=== PATIENT | female | born 1990 | race Caucasian/White ===

== ENCOUNTER 2022-07-04 04:40 | Inpatient (IN) | payer OTHER, SELFPAY ==
[2022-07-04] VITALS (65 sets, daily range): BP systolic 93–135; BP diastolic 47–93; PULSE 74–126; RESP 16–18; TEMP 36.6–37.2; O2SAT 92–100; BMI 27.5
--- NOTE | 2022-07-04 05:04 | LDADM ---
This patient, Mali Holland, was admitted to Labor/Delivery/Recovery 106 on 07/04/22 at 04:40. Plans for labor, pain management and were discussed with patient. Patient/family oriented to hospital policies and general routines including ID bracelet, bed and alarms, visiting hours, pain management, procedures, bathroom and other care routines, personal items, smoking policy, room service/diet and guest tray routines, security routines, and visiting hours. Patient/Family are encouraged to report perceived risks to care and to ask questions if they do not understand what they are told or what they should do. See OBIX for further documentation.
[2022-07-04 05:18] LABS: Basophils Percent Auto 0.3 % (0.2-1.2); Eosinophils Absolute Auto 0.1 K/mm3 (0-0.3); Eosinophils Percent Auto 0.6 % (0-4.4); Hematocrit 32.5 % (37.0-47.0); Hemoglobin 10.1 g/dL (12.0-15.0); Immature Granulocyte Absolute 0.03 K/mm3 (0.00-0.031); Immature Granulocyte Percent A 0.3 % (0-0.5); Lymphocytes Absolute Auto 2.13 K/mm3 (0.9-3.2); Mean Corpuscular HGB Conc 31.1 g/dl (32-36); Mean Corpuscular Hemoglobin 25.6 pg (26-34); Mean Corpuscular Volume 82.3 fl (80-100); Mean Platelet Volume 9.7 fl (7.4-10.4); Monocytes Absolute Auto 0.8 K/mm3 (0.1-0.6); Monocytes Percent Auto 8.8 % (2.6-8.5); Neutrophils Absolute Auto 6.2 K/mm3 (1.3-6.7); Platelet Count Result 196 k/mm3 (150-375); Red Blood Count 3.95 M/mm3 (4.2-5.4); Red Cell Distribution Width 13.5 % (11.5-14.5); White Blood Count 9.3 K/mm3 (4.5-10.0)
[2022-07-04] MEDS: OXYTOCIN 30 UNITS/NS 500 ML 30 UNITS/500 ML BAG IV CONT (05:45)
[2022-07-04] MEDS: LACTATED RINGERS 1,000 ML 125 ML IV CONT ×2 (05:46→09:15)
--- NOTE | 2022-07-04 10:42 | WPDHPUPDATE1 ---
History and Physical Update Update Date/Time: 07/04/22 10:42 History and Physical has been reviewed, including an updated exam of the patient. There are NO changes in the patient's condition. Risks, benefits, and alternatives have been discussed and questions answered. Patient agrees to proceed with procedure.
--- NOTE | 2022-07-04 10:42 | WPDOBADMIT ---
Obstetrics - Admit Note Admission Note: record reviewed. No pertinent additions to the history and/or any subsequent changes in the physical findings that are not consistent with the expected course of the were found. Additions to the history and/or subsequent changes in the physical findings follow. None.
--- NOTE | 2022-07-04 12:38 | P.PCNOB_ITS ---
OB - Delivery Note Procedure Induction method: AROM and Per Pitocin Protocol Delivery monitor: External FHT and External Uterine Route of delivery: Episiotomy description: None Laceration Description: None Specimen: No Quantitative Blood Loss (ml): 350 Anesthesia type: Epidural Disposition: Floor Complications: None Narrative: patient prepped draped usual manner for this procedure. Maternal expulsive efforts readily delivered vertex rest baby was delivered without difficulty. Cord clamped and cut placenta delivered spontaneously. Cervix vagina vulva were inspected with no lacerations or tears. Immediate postoperative mother was excellent baby was having some difficulty with breathing and was sent to the nursery. [place] Baby Weeks of gestation at delivery: 39 gender: Male Weight (pounds): 8 Weight (ounces): 2 presentation: vertex Placenta delivery description: Spontaneous Cord Vessel Description: 3 Vessels score one minute: 8 score five minutes: 9 [facility] Delivery Billing Delivery Delivery: Delivery Charge
[2022-07-04] MEDS: OXYTOCIN 30 UNITS/NS 500 ML 30 UNITS/500 ML BAG 125 UNITS IV CONT (13:06)
[2022-07-04] MEDS: IBUPROFEN 600 MG TABLET PO (15:12)
[2022-07-04] MEDS: WITCH HAZEL 40 PADS 1 PAD TOPICAL (15:13)
[2022-07-04] MEDS: BENZOCAINE 20% AER SPR (*SP) 56 GM CAN 1 SPRAY TOPICAL (15:13)
--- NOTE | 2022-07-04 15:25 | OBPPTRN ---
Patient transferred to post room #282 via wheelchair. Support person present. Oriented to unit, room, information board, rooming in, admission packet and security measures. Patient verbalizes understanding.
--- NOTE | 2022-07-04 15:50 | PC.NURSE ---
Breast pump provided due to separation from infant. Instructions given on cleaning, care, usage, that there should be no pain, pumping schedule for milk production, collection, and storage of human milk. Patient was assessed for correct placement, flange size, to pump for comfort and nipple stretching/stimulation for adequate milk production every 3 hours (8 times in 24 hours) 1-2 times at night.
--- NOTE | 2022-07-04 16:25 | PC.NURSE ---
This patient went to [facility] to visit . IV Pitocin infusing, nursery nurse Lashay rojas.
--- NOTE | 2022-07-04 17:55 | PC.NURSE ---
Patient back to room from [facility].
[2022-07-04] MEDS: ACETAMINOPHEN 325 MG TABLET 650 MG PO (18:05)
[2022-07-05 05:42] LABS: Hematocrit 29.8 % (37.0-47.0); Hemoglobin 9.1 g/dL (12.0-15.0)
[2022-07-05] MEDS: IBUPROFEN 600 MG TABLET PO (05:43)
--- NOTE | 2022-07-05 07:31 | PM.OBDSVD ---
DS: Admitting Diagnosis Discharge Date 07/05/22 Admitting Diagnosis supervision of high risk intrauterine at term DS: Discharge Diagnosis Discharge Diagnosis (1) : Code(s): Z34.90 - Encounter for supervision of normal , unspecified, unspecified trimester Status: Acute OB - DS: Summary OB Procedures : None OB Procedures Intrapartum: Spontaneous Vag Delivery OB Procedures: : None Peripartum Data Delivery Method: Natural Vaginal Laceration Description: None complications: none Status at Discharge Functional status at discharge: independent ambulation Overall status at discharge: patient is back to baseline Time Spent with Patient Time attestation: Total time spent providing and/or coordinating discharge services: Time spent: Less than 30 minutes Exam Const: General: comfortable and no acute distress Resp: Effort & Inspection: normal respiratory effort Auscultation: clear to auscultation bilaterally Cardio: Rate: regular rate GI: GI Palp: Yes Soft to palpation Auscultation: normal bowel sounds Other: Fundus firm below umbilicus Psych: Appearance: grossly normal Mental Status: mental status grossly normal Affect: normal affect DS: Data Data Completed and Pending Labs on day of discharge: Labs from last 24 hours 07/05/22 05:33 Hgb 9.1 L Hct 29.8 L Discharge Plan Discharge Discharging Clinician: Lui Hart Patient Disposition: Home, Self-Care Activity: as tolerated and pelvic rest Diet: regular Patient Instructions: Antibiotic Form, Vaginal Delivery (DC) Stand Alone Forms: General Discharge Information Follow-up/Referrals: Mario Rodriguez MD [Physician] - Discharge Medications: New polysaccharide iron complex 150 mg iron Capsule 150 mg PO BIDWM Qty: 60 0RF acetaminophen [Mapap (acetaminophen)] 325 mg Tablet 650 mg PO Q6H PRN (Reason: Mild Pain (1-3) Or Headache) Qty: 30 0RF ibuprofen 600 mg Tablet 600 mg PO Q6H PRN (Reason: Cramping) Qty: 30 0RF Continued Multi-DHA(with vit K) 27 mg iron-800 mcg-260 mg capsule 1 cap PO DAILY Qty: 90 3RF sertraline [Zoloft] 50 mg tablet 50 mg PO DAILY Qty: 60 1RF Date of admission: 07/04/22 04:40 Primary Care Provider: UNKNOWN,DOCTOR Admitting Provider: Mario Rodriguez Attending physician on admission: Mario Rodriguez Condition: Stable
--- NOTE | 2022-07-05 07:44 | WPDANLDPN2 ---
Anes-Prog Note L&D Date/Time: 07/05/22 07:44 Comfortable throughout: labor and delivery Neuraxial method: epidural Epidural/Spinal procedure site: tender Neuro status: Neuro function grossly intact. Cardiovascular status: normal Respiratory status: normal Airway patency: baseline Mental status: baseline Post-Op hydration status: normal Vital Signs: Last Vital Signs Temp 36.8 C 07/04/22 23:23 Pulse 84 07/04/22 23:23 Resp 18 07/04/22 23:23 BP 98/52 L 07/04/22 23:23 Pulse Ox 98 07/04/22 23:23 O2 Del Method Room Air 07/04/22 15:25 Pain score (VAS): 310 I/O: Intake & Output 07/04/22 07/04/22 07/05/22 15:59 23:59 07:59 Intake Total 2000 1000 Output Total 87 Balance 1913 1000 Post-procedural complaints: none Patient feedback: Patient satisfied with anesthetic care.
[2022-07-05] MEDS: POLYSACCHARIDE IRON COMPLEX 150 MG CAPSULE PO (08:24)
[2022-07-05] MEDS: MULTIVIT/MIN/PREN/FOL AC/IRON TABLET 1 TAB PO (08:24)
[2022-07-05] MEDS: MEASLES,MUMPS,RUBELLA VACCINE 0.5 ML VIAL SUB-Q (08:25)
--- NOTE | 2022-07-05 09:22 | PC.NURSE ---
[id number] Introductions were made after patient requested a consult. Patient led the conversation with her desires to breastfeed, questions and needs related to pumping and protecting her milk supply. Breast pump provided yesterday due to separation with her infant. Instructions given on cleaning, care, usage, that there should be no pain, pumping schedule for milk production, collection, and storage of human milk. Patient was assessed for correct placement, flange size, to pump for comfort and nipple stretching/stimulation for adequate milk production every 3 hours (8 times in 24 hours) 1-2 times at night. Nipple diameter was measure and insurance pump was reviewed concerning the use and flange fit. Encouraged mother to reach out to the call center support consultant at [facility]. Mother voiced understanding of the education shared along with mom and baby guide for additional resource information. Reported to the primary RN.
[2022-07-05 09:30] VITALS: BP 111/80; PULSE 75; RESP 18; TEMP 36.4; O2SAT 100
[2022-07-05 09:43] LABS: Rapid Plasma Reagin Non-Reactive (NonReactive)
--- NOTE | 2022-07-05 09:45 | PC.NURSE ---
Patient to view the discharge video Mother & Baby Care, The First Two Weeks online. Patient was given the opportunity and encouraged to ask questions. Patient verbalized understanding of information shared and has been given the mother/baby guide for home reference.
== END 2022-07-05 10:05 | disposition home or self-care (01) | DRG 807 ==
LOC: ANHLDR 04:44 → ANHOB2 15:30
PROVIDERS: Admitting Provider Obstetrics & Gynecology; Visit Provider Obstetrics & Gynecology
DX: O99.344 Other mental disorders complicating childbirth (principal); Z37.0 Single live birth; Z3A.39 39 weeks gestation of pregnancy; F41.9 Anxiety disorder, unspecified; F32.A Depression, unspecified
CPT/HCPCS: 36415; 85014; 85018; 85025; 86592; 86850; 86900; 86901; 90710; A9270; J2590; J2795; J7120

== ENCOUNTER 2024-02-21 07:41 | Outpatient (CLI) | payer BC, SELFPAY ==
[2024-02-21 08:28] LABS: Hematocrit 42.4 % (37.0-47.0); Hemoglobin 13.5 g/dL (12.0-15.0); Mean Corpuscular HGB Conc 31.8 g/dl (32-36); Mean Corpuscular Hemoglobin 29.3 pg (26-34); Mean Platelet Volume 9.5 fl (7.4-10.4); Platelet Count Result 221 k/mm3 (150-375); Red Blood Count 4.61 M/mm3 (4.2-5.4); Red Cell Distribution Width 13.3 % (11.5-14.5); White Blood Count 5.7 K/mm3 (4.5-10.0)
== END 2024-02-21 07:42 | disposition home or self-care (01) ==
LOC: ANHLAB 07:42
PROVIDERS: Visit Provider Obstetrics & Gynecology
DX: Z30.2 Encounter for sterilization (principal)
CPT/HCPCS: 36415; 85027

== ENCOUNTER 2024-02-26 01:03 | Day surgery (SDC) | payer BC, SELFPAY ==
[2024-02-16 17:10] VITALS: BMI 31.1
--- NOTE | 2024-02-16 17:12 | PC.NURSE ---
Report to the Outpatient Waiting Room, entrance under the green pavilion located off [facility], at time __7:30am__ on date ____[phone]___. Planned Procedure Time: ___9:30am .? Time changes happen often and if your time is changed the preop area will call you the afternoon before. - You and your visitor will be asked to self-screen and do not enter if you have any COVID symptoms. Please call surgeon if you need to reschedule. - A mask is optional within the hospital at this time. Patients may have clear liquids (water, carbonated beverages, clear teas, apple juice) until 3 hours prior to surgery with a maximum of 20 ounces. STOP YOUR LIQUIDS AT 6:30am - No food from midnight until time of surgery and no smoking Take only the following medications with a SIP of water on the morning of surgery: N/A DO NOT STOP ANY OF YOUR OTHER PRESCRIPTION MEDICATIONS PRIOR TO SURGERY EXCEPT THE FOLLOWING Medications to discontinue per physician N/A Date to take last dose N/A____ Please no make-up, nail turkmen, hairspray, perfume, deodorant, or body powder the day of surgery.? No jewelry (including any body piercings) or valuables the day of surgery, leave them at home.? Please take a shower or bath the night before, or the morning of, surgery with an antibacterial soap.? Wear comfortable, loose fitting clothing.? - Jewelry must be removed prior to entering the operating room.? Rings and piercings that are not removed may be cut off. - The hospital will not accept responsibility for valuables.? - Please leave all valuables, including medications, at home the day of surgery. If you are going home after surgery, a licensed tanker truck driver must drive you home.? - NO public transportation without another adult if you receive anesthesia. - We recommend that an adult stay with you for 24 hours following discharge. - We also recommend that you do not drive, make important decision, drink alcoholic beverages, or take any drugs that were not prescribed by your health care provider for at least 24 hours after your discharge time. Follow any additional instructions given to you from your surgeon. Telephone instructions given to _Mali (patient) and asked if any additional questions and then verbalized understanding. Patient advised to call surgeon office or pre surgery nurse liaison [phone] if any additional questions.
--- NOTE | 2024-02-25 11:23 | PM.IMHP ---
H&P: HPI History of Present Illness Date/Time: 02/25/24 11:23 33-year-old female 2 para 2002 presents for permanent sterilization. We have discussed the permanence failure rate increased risk of ectopic and regret. Also the procedure has been discussed at length. She declines all nonpermanent options. Chief Complaint: Undesired fertility Review of Systems Review of Systems: All systems reviewed & are unremarkable except as noted in HPI and below PMFSH Past Medical History Medical History Abnormal Pap smear of cervix 12/17/2011 (lgsil) 01/20/12 cx/bx - dysplasia CHAD I w/extensive hpv change Anxiety Blood glucose abnormal Chlamydia Depression Encounter for IUD insertion 06/18/11 Mirena insertion 06/17/16 Mirena removal & reinsertion Encounter for IUD removal 06/17/16 Mirena removal & reinsertion Gestational hypertension Suppression of menses Surgical History Surgical History History of bilateral breast reduction surgery (~2013) History of colposcopy with cervical biopsy (01/15/12) dysplasia/CHAD I w/extensive HPV changes History of ear surgery (~2011) History of gynecologic surgery 03/21/10 excision of vulva lesions--molluscum contagiosum TCA x7 in 2009 History of gynecological procedure (12/06/20) mirena iud removal History of placement of ear tubes (~1999) Family History Family History Grandparent Malignant neoplasm of prostate maternal grandfather Sibling Heart murmur sister Other Breast cancer maternal aunt--stage 4 Social History Social History Smoking status: Never smoker Second hand tobacco smoke exposure: No Alcohol intake: current Drinks per week: 0 Alcohol use details: rarely. x1 per month. 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 Gender identity (if verbalized by the patient): Female Sexual Orientation (if Verbalized by the Patient): Straight or Heterosexual Spiritual care concerns: No Meds Home Medications and Allergies Home Medications Medication Instructions Recorded Confirmed Type sertraline 50 mg tablet (Zoloft) 50 mg PO HS 02/16/24 02/16/24 History Allergies Allergy/AdvReac Type Severity Reaction Status Date / Time No Known Allergies Allergy Verified 02/16/24 17:09 Exam Const: General: cooperative and healthy appearing Resp: Effort & Inspection: normal respiratory effort Auscultation: clear to auscultation bilaterally Cardio: Rate: regular rate Rhythm: regular rhythm GI: Inspection: normal to inspection GI Palp: No abdominal tenderness Auscultation: normal bowel sounds : External Female Exam: normal external appearance Speculum Exam - Vagina: normal appearance of the vagina Speculum Exam - Cervix: normal appearance of the cervix Bimanual exam- vagina & uterus: normal bimanual exam Bimanual Exam- Adnexa, other: normal adnexae Assessment and Plan Assessment and plan (1) Encounter for female sterilization procedure: Code(s): Z30.2 - Encounter for sterilization Status: Acute Plan proceed with laparoscopic bilateral salpingectomy
[2024-02-26] VITALS (9 sets, daily range): BP systolic 95–124; BP diastolic 51–75; PULSE 76–101; RESP 14–20; TEMP 36.3; O2SAT 100
[2024-02-26] MEDS: LACTATED RINGERS 1,000 ML 30 ML IV CONT (07:00)
[2024-02-26 07:32] LABS: BEDSIDEPREGUCG Negative (Negative)
--- NOTE | 2024-02-26 07:38 | P.PNAN_ITS ---
Anes - Initial Pre Proc Eval Procedure: Operation Date: 02/26/24 08:30 Proposed Procedures p Bilateral Laparoscopic Salpingectomy - Mario Rodriguez MD Date/Time: 02/26/24 07:38 Surgeon: Mario Rodriguez MD Pre Op Diagnosis: Desire Sterilization Patient Data Age: 33 Gender: F Height: 1.57 m Weight: 83 kg Last Vital Signs Temp 36.3 C L 02/26/24 07:00 Pulse 92 02/26/24 07:00 Resp 14 02/26/24 07:00 BP 124/72 02/26/24 07:00 Pulse Ox 100 02/26/24 07:00 O2 Del Method Room Air 02/26/24 07:00 Allergies Allergy/AdvReac Type Severity Reaction Status Date / Time No Known Allergies Allergy Verified 02/16/24 17:09 Home Medications Medication Instructions Recorded Confirmed Type sertraline 50 mg tablet (Zoloft) 50 mg PO HS 02/16/24 02/16/24 History Laboratory Tests 02/26/24 07:00 POC Urine HCG, Qual Negative (Negative) Patient hx anesthesia problems: none Family hx anesthesia problems: none Results Review: All pre-operative results and documents have been reviewed as part of the pre- operative evaluation. [facility] Past Medical History Medical History Abnormal Pap smear of cervix 12/17/2011 (lgsil) 01/20/12 cx/bx - dysplasia CHAD I w/extensive hpv change Anxiety Blood glucose abnormal Chlamydia Depression Encounter for IUD insertion 06/18/11 Mirena insertion 06/17/16 Mirena removal & reinsertion Encounter for IUD removal 06/17/16 Mirena removal & reinsertion Gestational hypertension Suppression of menses Surgical History Surgical History History of bilateral breast reduction surgery (~2013) History of colposcopy with cervical biopsy (01/15/12) dysplasia/CHAD I w/extensive HPV changes History of ear surgery (~2011) History of gynecologic surgery 03/21/10 excision of vulva lesions--molluscum contagiosum TCA x7 in 2009 History of gynecological procedure (12/06/20) mirena iud removal History of placement of ear tubes (~1999) Family History Family History Grandparent Malignant neoplasm of prostate maternal grandfather Sibling Heart murmur sister Other Breast cancer maternal aunt--stage 4 Social History Social History Smoking status: Never smoker Second hand tobacco smoke exposure: No Alcohol intake: current Drinks per week: 0 Alcohol use details: rarely. x1 per month. 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 Gender identity (if verbalized by the patient): Female Sexual Orientation (if Verbalized by the Patient): Straight or Heterosexual Spiritual care concerns: No Anes - Eval Final PreProcedure Day of Procedure 02/26/24 07:38 Patient weight: obese Heart: regular rate and rhythm Lungs: clear to auscultation Airway: Mallampati scale class II Neurological: alert and oriented Last oral intake: >/= 8 hours ASA classification: II Emergent: no Anesthetic plan: proceed Anesthesia type and monitoring: general GIVS and standard monitoring Results Review: All pre-operative results and documents have been reviewed as part of the pre- operative evaluation. Informed Consent: The patient's anesthetic plan and its attendant risks and benefits were discussed with the patient/family/POA. Questions were solicited and answers provided to the satisfaction of the patient/family/POA.
[2024-02-26] MEDS: KETOROLAC 15 MG/ML VIAL (*BKC) IV PUSH (07:45)
[2024-02-26] MEDS: ACETAMINOPHEN 500 MG TABLET 1000 MG PO (07:45)
--- NOTE | 2024-02-26 08:20 | WPDHPUPDATE1 ---
History and Physical Update Update Date/Time: 02/26/24 08:20 History and Physical has been reviewed, including an updated exam of the patient. There are NO changes in the patient's condition. Risks, benefits, and alternatives have been discussed and questions answered. Patient agrees to proceed with procedure.
--- NOTE | 2024-02-26 08:57 | W.PM.PROC2 ---
Procedure Note - Detailed Date of Procedure 02/26/24 Pre-op Diagnosis Desire Sterilization Post-op Diagnosis Same Procedure Performed Laparoscopic bilateral salpingectomy Surgeon Mario Rodriguez MD Anesthesia General Findings Uterus tubes ovaries without abnormality Description of Procedure Patient prepped and draped in usual manner for this procedure. Cervical instruments were placed for uterine mobility throughout the case. Abdominal trocar sites were made and trocars were placed under direct visualization. Bilaterally the mesial salpinx was cauterized and cut and tubes removed without difficulty. There was no bleeding and no other abnormalities were appreciated in the pelvis. Gas was allowed to escape, trocars removed, incisions approximated using Monocryl and glue. Patient was sent to recovery room in stable condition. Estimated Blood Loss 10 Drains No Packing No Pathology Yes Complications No immediate complications Condition Stable Disposition PACU [facility] Billing Surgery - Charge Forward: Surgery Billing
[2024-02-26] MEDS: oxyCODONE HCL (*CRX) 5 MG TAB IR PO (10:04)
== END 2024-02-26 10:55 | disposition home or self-care (01) ==
PROVIDERS: Anesthesiology; Visit Provider Obstetrics & Gynecology
PROC: (CPT 49320; principal; 2024-02-26 08:30)
DX: Z30.2 Encounter for sterilization (principal); F41.9 Anxiety disorder, unspecified; F32.A Depression, unspecified; E66.9 Obesity, unspecified; Z68.33 Body mass index [BMI] 33.0-33.9, adult
CPT/HCPCS: 58661; 88302; A9270; J1100; J1885; J2250; J2405; J2704; J3010; J7120